=== PATIENT | female | born 1990 | race American Indian/Alaskan Native ===

== ENCOUNTER 2019-08-13 01:42 | Emergency (ER) | payer BC ==
--- NOTE | 2019-08-13 03:31 | Emergency Department Report ---
ED Shortness of Breath HPI - General Chief Complaint: Chest Pain Stated Complaint: SHORTNESS OF BREATH, CHEST PAIN Time Seen by Provider: 08/13/19 02:24 Source: patient Mode of arrival: Ambulatory Limitations: No Limitations - History of Present Illness Initial Comments: 29-year-old female with history of anxiety who presents to ED with complaint of shortness of breath. Patient states she tested positive for COVID-19 on 08/02/2019. Patient states her symptoms began on July 17 and have consisted of fever, headache, loss of sense of smell, and cough. Patient states she has already finished a Z-Ismael, and is currently taking hydroxychloroquine. Tonight, patient reports he woke up from her sleep and felt short of breath. Patient states she is unsure if it could be her anxiety. Patient states she drove herself to the ED. She reports shortness of breath lasted for approximately 20 minutes until she arrived here. Patient currently feels fine, and denies any dyspnea. MD Complaint: shortness of breath -: During the night Severity: moderate Consistency: now resolved Improves With: nothing Worsens With: nothing Known History Of: other (COVID-19) Associated Symptoms: chest pain (with cough), fever, cough - Related Data Allergies Allergy/AdvReac Type Severity Reaction Status Date / Time No Known Allergies Allergy Unverified 08/13/19 01:52 ED Review of Systems ROS: Stated complaint: SHORTNESS OF BREATH, CHEST PAIN Other details as noted in HPI Comment: All other systems reviewed and negative Constitutional: fever Respiratory: cough, shortness of breath Cardiovascular: chest pain Gastrointestinal: denies: nausea, vomiting ED Past Medical Hx - Past Medical History Previous Medical History?: No - Surgical History Past Surgical History?: No - Social History Smoking Status: Never Smoker Substance Use Type: None ED Physical Exam - General Limitations: No Limitations General appearance: alert, in no apparent distress - Head Head exam: Present: atraumatic, normocephalic - Eye Eye exam: Present: normal appearance, EOMI - ENT ENT exam: Present: mucous membranes moist - Neck Neck exam: Present: normal inspection - Respiratory Respiratory exam: Absent: respiratory distress - Cardiovascular Cardiovascular Exam: Present: regular rate, normal rhythm - GI/Abdominal GI/Abdominal exam: Present: soft. Absent: distended, tenderness - Extremities Exam Extremities exam: Present: normal inspection - Neurological Exam Neurological exam: Present: alert, oriented X3, CN II-XII intact. Absent: motor sensory deficit - Psychiatric Psychiatric exam: Present: normal affect, normal mood - Skin Skin exam: Present: warm, dry, intact, normal color ED Course Vital Signs 08/13/19 08/13/19 08/13/19 01:47 02:29 02:31 Temperature 98.8 F Pulse Rate 108 H 94 H 85 Respiratory 18 16 20 Rate Blood Pressure 138/73 107/67 O2 Sat by Pulse 100 100 Oximetry 08/13/19 08/13/19 08/13/19 02:45 03:00 03:15 Temperature Pulse Rate Respiratory 18 19 17 Rate Blood Pressure 115/57 121/70 118/69 O2 Sat by Pulse 100 100 100 Oximetry 08/13/19 08/13/19 08/13/19 03:30 03:45 04:00 Temperature Pulse Rate 75 69 67 Respiratory 17 20 19 Rate Blood Pressure 125/79 125/73 118/73 O2 Sat by Pulse 100 100 100 Oximetry 08/13/19 04:15 Temperature Pulse Rate Respiratory Rate Blood Pressure 118/73 O2 Sat by Pulse 100 Oximetry ED Medical Decision Making - EKG Data -: EKG Interpreted by [facility] EKG shows normal: sinus rhythm, axis, intervals, QRS complexes, ST-T waves Rate: normal - EKG Data Interpretation: no acute changes - Radiology Data Radiology results: report reviewed, image reviewed - Medical Decision Making - COVID + - CXR normal - O2 sats 100%, she is in no respiratory distress - young and healthy, no comorbidities - pt has no risk factors for progression of disease - pt has already finished azithromycin and is currently taking hydroxychloroquine - will d/c home at this time - advised pt to continue to quarantine until symptoms resolve - Differential Diagnosis pneumonia, hypoxia Critical care attestation.: If time is entered above; I have spent that time in minutes in the direct care of this critically ill patient, excluding procedure time. ED Disposition Clinical Impression: COVID-19 virus infection Disposition: - TO HOME OR SELFCARE Is pt being admited?: No Condition: Stable Instructions: COVID-19 Additional Instructions: Continue to quarantine until symptoms resolve. Referrals: PRIMARY [facility]EMD [Referring] - as needed [facility] CELINE LR MD [Primary Care Provider] - as needed Time of Disposition: 04:12
--- NOTE | 2019-08-13 03:54 | XRay Report ---
CHEST 1 VIEW 08/13/2019 2:43 AM INDICATION / CLINICAL INFORMATION: MAIN: sob; PT STATES SHE TESTED POSITIVE FOR COVID19 AND IS SOB X 1 WEEK. COMPARISON: None available. FINDINGS: SUPPORT DEVICES: None. HEART / MEDIASTINUM: No significant abnormality. LUNGS / PLEURA: No significant pulmonary or pleural abnormality. No pneumothorax. ADDITIONAL FINDINGS: No significant additional findings. IMPRESSION: 1. No acute findings. Signer Name: Narciso Mclaughlin MD Signed: 08/13/2019 3:50 AM Workstation Name: [id number]
[2019-08-13 04:47] VITALS: BP 118/73
== END 2019-08-13 04:35 | disposition home or self-care (01) ==
LOC: ED 01:42
DX: J22 Unspecified acute lower respiratory infection (principal); B97.29 Other coronavirus as the cause of diseases classified elsewhere
CPT/HCPCS: 36415; 71045; 93005; 93010

== ENCOUNTER 2021-11-17 22:16 | Emergency (ER) | payer BC ==
[2021-11-17 22:56] VITALS: BP 124/76
== END 2021-11-18 07:00 | disposition left against medical advice (07) ==
LOC: ED 22:16
DX: R06.02 Shortness of breath (principal); Z53.21 Procedure and treatment not carried out due to patient leaving prior to being seen by health care provider